=== PATIENT | female | born 1980 | race Caucasian/White ===

== ENCOUNTER → 2017-07-28 | Outpatient (CLI) | payer OTHER ==
[2016-05-01 22:49] VITALS: BP 110/78
--- NOTE | 2017-07-28 16:23 | RAD ---
Examination: Thoracic spine, AP and lateral views History: Mid back pain, no trauma Findings: There is a mild dextroscoliosis. Alignment of vertebrae is normal. Disc spaces, pedicles an d paraspinal soft tissues are unremarkable. Impression: No significant thoracic spine abnormality demonstrated. Reported By:
--- NOTE | 2017-07-28 17:14 | RAD ---
Examination: Lumbar spine, AP and lateral views History: Pain no trauma Findings: Normal appearance of vertebral bodies, disc spaces and sacroiliac joints. The pedicles are intact. No evidence for fracture, subluxation or significant degenerative disease. Impression: AP and lateral views of lumbar spine within normal limits. Reported By:
--- NOTE | 2017-07-28 18:37 | RAD ---
Examination: Cervical spine, AP and lateral views History: Pain, no trauma Findings: AP, lateral and open-mouth odontoid views were obtained. The lateral view does not include C7 or T1. Normal alignment of C1-C6. No fracture, subluxation, disc narrowing or odontoid asymmetry. Impression: No significant abnormality noted. The cervicothoracic junction is not evaluated on latera l view. Reported By:
== END ==
LOC: RAD 15:30
PROVIDERS: ATTEND Nurse Practitioner Family
DX: M54.6 Pain in thoracic spine (principal); M54.5 Low back pain; M54.2 Cervicalgia
CPT/HCPCS: 72040; 72072; 72100

== ENCOUNTER → 2017-08-15 | Outpatient (CLI) | payer OTHER ==
[2016-05-01 22:49] VITALS: BP 110/78
--- NOTE | 2017-08-15 15:18 | CT ---
CT OF THE ABDOMEN AND PELVIS WITH CONTRAST HISTORY: Left lower quadrant pain Comparison: None Technique: Multiple axial images of the abdomen and pelvis were obtained from the lung bases to the pubic symphy sis follow the administration of IV contrast as well as oral contrast. Dose reduction techniques inc luding Automated Exposure Control (AEC) and adjustment of mA and kV were utlized. Findings: The heart is normal in size. There is no pericardial effusion. Lung bases are clear without focal con solidation, pleural effusion or pneumothorax. Liver and spleen are normal in size, enhancement characteristics and contour. No focal lesions. The p ortal vein is patent. No ductal dilitation. Gallbladder is present. No calcified gallstones or gallbl adder wall thickening. The pancreas is unremarkable. Adrenal glands are normal. Kidneys enhance symme trically without hydronephrosis or nephrolithiasis. No bowel obstruction or inflammation. The appendix is not inflamed. It should be noted that the appen meg is adjacent to the gallbladder in the right upper quadrant No abnormal appearing mesenteric or re troperitoneal lymph nodes. No free fluid or fluid collections. The bladder is normal in appearance. Uterus appears to be present. No free fluid or abnormal pelvic l ymph nodes. No aggressive osseous lesions. IMPRESSION: 1. No definite source of patient's left lower quadrant pain is identified. Reported By:
== END ==
LOC: RAD 09:44
PROVIDERS: ATTEND Nurse Practitioner Family
DX: R10.32 Left lower quadrant pain (principal)
CPT/HCPCS: 74177; A4222